=== PATIENT | male | born 1990 | race Caucasian/White ===

== ENCOUNTER 2019-09-27 15:06 | Emergency (ER) | payer OTHER ==
[~2019-09-27] VITALS: Ht 175.3 cm; Wt 80.0 kg
[2019-09-27] MEDS ORDERED: PRED20TA PO (16:11)
[2019-09-27] MEDS ORDERED: IBUP-1984 PO (16:11)
[2019-09-27 16:32] VITALS: BP 101/53
== END 2019-09-27 16:34 | disposition home or self-care (01) ==
LOC: ER 15:07
DX: G56.02 Carpal tunnel syndrome, left upper limb (principal); Z79.899 Other long term (current) drug therapy
CPT/HCPCS: 29125; 73090; 99283

== ENCOUNTER 2024-03-07 10:00 | Emergency (ER) | payer OTHER ==
[~2024-03-07] VITALS: Ht 175.3 cm; Wt 82.0 kg
[2024-03-07 10:09] VITALS: TEMP 98.6
[2024-03-07 11:19] LABS: BASOPHILS # (AUTO) 0.1 X10'3 (0-0.2); BASOPHILS % (AUTO) 1.1 % (0-1); EOSINOPHILS # (AUTO) 0.3 X10'3 (0-0.9); EOSINOPHILS % (AUTO) 4.8 % (0-6); HEMATOCRIT 46.7 % (42.0-52.0); HEMOGLOBIN 15.7 g/dl (14.0-17.9); LYMPHOCYTES # (AUTO) 1.6 X10'3 (1.1-4.8); LYMPHOCYTES % (AUTO) 22.4 % (21-51); MEAN CORPUSCULAR HEMOGLOBIN 29.1 PG (27.0-31.0); MEAN CORPUSCULAR HGB CONC 33.7 g/dL (33.0-36.5); MEAN CORPUSCULAR VOLUME 86.3 FL (78-98); MEAN PLATELET VOLUME 6.7 FL (7.4-10.4); MONOCYTES # (AUTO) 0.5 X10'3 (0-0.9); MONOCYTES % (AUTO) 7.7 % (2-12); NEUTROPHILS # (AUTO) 4.5 X10'3 (1.8-7.7); PLATELET COUNT 294 X10'3 (140-440); RED BLOOD COUNT 5.41 X10'6 (4.70-6.10); RED CELL DISTRIBUTION WIDTH 14.5 % (11.5-14.5); WHITE BLOOD COUNT 7.1 X10'3 (4.5-11.0)
[2024-03-07] MEDS ORDERED: iohexol 300mg/ml 100ml inj. ONE (11:27)
[2024-03-07 11:39] LABS: APTT 27 SECONDS (22-32); PROTHROMBIN TIME 10.2 SECONDS (9.0-12.0)
[2024-03-07 11:42] LABS: ALANINE AMINOTRANSFERASE 42 U/L (12-78); ALBUMIN 4.4 G/DL (3.4-5.0); ALBUMIN/GLOBULIN RATIO 1.4 (1.1-1.5); ALKALINE PHOSPHATASE 77 IU/L (46-116); ANION GAP 6 (8-16); ASPARTATE AMINO TRANSFERASE 22 U/L (10-37); BILIRUBIN,TOTAL 0.4 MG/DL (0.1-1.0); BLOOD UREA NITROGEN 14 MG/DL (7-18); BUN/CREATININE RATIO 15.9 (10.0-20.0); CALCIUM 9.3 MG/DL (8.5-10.1); CHLORIDE 107 MMOL/L (99-107); CREATININE 0.88 MG/DL (0.60-1.10); GLUCOSE 100 MG/DL (70-104); LIPASE 138 U/L (16-77); POTASSIUM 4.3 MMOL/L (3.5-5.1); SODIUM 142 MMOL/L (135-145); TOTAL CARBON DIOXIDE 28.9 MMOL/L (24-32); TOTAL PROTEIN 7.6 G/DL (6.4-8.2); eCRCL 121 ML/MIN; eGFR > 90 ML/MIN
[2024-03-07] MEDS: acetaminophen 325mg tablet PO ONE (12:29)
[2024-03-07] MEDS: pantoprazole 40 MG vial IV ONE (12:29)
[2024-03-07] MEDS ORDERED: PANT20TA18 PO (13:19)
[2024-03-07 14:00] VITALS: BP 137/84; PULSE 68; RESP 16; O2SAT 98
== END 2024-03-07 13:58 | disposition home or self-care (01) ==
LOC: ER 10:00
DX: K92.1 Melena (principal); Z79.899 Other long term (current) drug therapy
CPT/HCPCS: 36415; 74177; 80053; 83690; 85025; 85610; 85730; 86885; 86900; 86901; 96365; 99285; J2470; Q9967

== ENCOUNTER 2024-04-25 13:07 | Emergency (ER) | payer MEDICAID ==
[~2024-04-25] VITALS: Ht 175.3 cm; Wt 77.2 kg
[~2024-04-25 13:07] MED LIST: PANT20TA18 PO
[2024-04-25 13:29] VITALS: BP 113/82; PULSE 89; RESP 18; O2SAT 96
[2024-04-25] MEDS ORDERED: ALBU8HFA INH (14:34)
[2024-04-25] MEDS ORDERED: BENZ-38 PO (14:34)
[2024-04-25] MEDS ORDERED: PRED50TA PO (14:34)
[2024-04-25 14:42] VITALS: TEMP 98.2
== END 2024-04-25 14:44 | disposition home or self-care (01) ==
LOC: ER 13:08
DX: J06.9 Acute upper respiratory infection, unspecified (principal)
CPT/HCPCS: 71045; 99283

== ENCOUNTER 2024-11-09 13:07 | Emergency (ER) | payer MEDICAID ==
[~2024-11-09] VITALS: Ht 175.3 cm; Wt 78.7 kg
[~2024-11-09 13:07] MED LIST changes: +PRED50TA PO
[2024-11-09 13:12] VITALS: BP 113/61; PULSE 73; RESP 16; O2SAT 99
[2024-11-09] MEDS ORDERED: methylPREDNISolone sod succ/PF 40mg inj. IM STA (14:11)
[2024-11-09] MEDS: LIDOcaine 1% 30ml preserv. free vial IJ STA (14:11)
--- NOTE | 2024-11-09 14:13 | Physician Documentation ---
History of Present Illness ~ Chief Complaint: Elbow pain Stated Complaint: R HAND PAIN Time Seen by MD: 13:53 Primary Medical Doctor: None HPI The patient Is seen today with complaints of pain in his right elbow of the area of the lateral epicondyle. Patient also complains of numbness and tingling of the palmar surface of his right hand. Patient states he went to grab a gal of milk out of the Fridge yesterday in his whole hand gave out and he dropped a gal of milk he is very unusual for the patient. 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 Patient has no other concern or complaint at this time. Patient denies any neck pain. Patient denies any numbness or tingling in the dorsum of his right hand. Tetanus within 5 years: No Medication Reconciliation Allergies: Coded Allergies: No Known Allergies (Unverified , 11/09/24) Scheduled Pantoprazole Sodium (Protonix), 1 TAB PO DAILY Prednisone (Prednisone), 1 TAB PO DAILY Past Medical History Past Medical History: No Pertinent History Past Surgical History: noncontributory Review of Systems Constitutional: Denies: chills, fever, weakness Eyes: Denies: pain, blurred vision ENT: Denies: ear pain, nose pain, throat pain, mouth pain Respiratory: Denies: cough, shortness of breath Cardiovascular: Denies: chest pain, palpitations Gastrointestinal: Denies: abdominal pain, nausea, vomiting Genitourinary: Denies: burning, dysuria Male Genitalia: Denies: penile discharge, testicular pain Neurological: Denies: headache, dizziness Musculoskeletal: Denies: pain, swelling Integumentary: Denies: rash, lesions Allergic/Immunologic: Denies: hives, itching Hematologic/Lymphatic: Denies: no symptoms reported Psychiatric: Denies: depression, anxiety Physical Exam Vital Signs: Temperature: 98.3, Source: Temporal, Heart Rate: 73, Respiratory Rate: 16, BP: 113/61, Pulse Oximetry: 99, Weight: 78.700 Oxygen Flow Rate: 0 Physical Exam General: Awake and Alert, no acute distress. HEENT: Conjunctiva pink, Sclera clear, Mucus Membranes moist. Neck: Supple without masses and tenderness. Resp: Unlabored. Lungs clear to auscultation bilaterally. Heart: Regular Rate and rhythm, normal S1 and S2 without murmur, rub or gallop. Musculoskeletal: Patient on exam does have significant tenderness to palpation of the lateral epicondyle of the right upper extremity. Patient has decreased light touch sensation in the median and ulnar nerve distributions of the right hand, radial nerve distribution intact. After two pollicis brevis and dorsal interosseous strength are 5/5 of the right upper extremity. Motor function is intact distally. Extremities: No cyanosis,clubbing or edema. Skin: Warm and Dry. Procedures Additional Procedures Procedure Note Procedure note: 1 cc of 1% lidocaine plain without epinephrine and 20 mg of Depo-Medrol were injected into the lateral epicondyle space of the right upper extremity after area was sterilely prepped by myself today. Patient tolerated well. Adhesive bandage placed over injection site. Progress Results/Orders Results/Orders Completed Orders - MYKEL LOBO Lidocaine 1% 30ml Vial (Xylocaine 1% Via (11/09/24 14:11) Methylprednisolone Acetate*Im* (Depo-Med (11/09/24 14:32) Vital Signs 11/09/24 13:12 Temp 98.3 Pulse 73 Resp 16 B/P (MAP) 113/61 Pulse Ox 99 O2 Flow Rate 0 Medical Decision Making Findings The patient Is seen today with complaints of pain in his right elbow of the area of the lateral epicondyle. Patient also complains of numbness and tingling of the palmar surface of his right hand. Patient states he went to grab a gal of milk out of the Fridge yesterday in his whole hand gave out and he dropped a gal of milk he is very unusual for the patient. 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 Patient has no other concern or complaint at this time. Patient denies any neck pain. Patient denies any numbness or tingling in the dorsum of his right hand. Patient was given injection of 20 mg of Depo-Medrol with 1 cc of 1% lidocaine into the lateral epicondyle for treatment of tennis elbow today in the ED. of the right upper extremity. Patient was also given wrist brace to be worn at night only for carpal tunnel syndrome. Patient will also keep right elbow straight at night with a soft splint for treatment of cubital tunnel syndrome. Patient will follow up with primary care provider for referral to Neurology for nerve conduction study and possibly referral to Dr. Singh for further eval and treatment of carpal and cubital tunnel syndromes and tennis elbow of the right upper extremity. Patient will return to ED with any worsening, concerning or changing symptoms. Departure Disposition: 01 HOME / SELF CARE / HOMELESS Impression: Primary Impression: Lateral epicondylitis (tennis elbow) Qualified Codes: M77.11 - Lateral epicondylitis, right elbow Additional Impressions: Carpal tunnel syndrome of right wrist Cubital tunnel syndrome on right Condition: Improved Discharge Instructions: Carpal Tunnel Syndrome, [id number], Cubital Tunnel Syndrome, Tennis Elbow Rehab Additional Instructions: Patient was given steroid injection into the right elbow/lateral epicondyle for treatment of tennis elbow. Patient was also given wrist brace to be worn at night only for carpal tunnel syndrome. Patient will also keep right elbow straight at night with a soft splint for treatment of cubital tunnel syndrome. Patient will follow up with primary care provider for referral to Neurology for nerve conduction study and possibly referral to Dr. Singh for further eval and treatment of carpal and cubital tunnel syndromes and tennis elbow of the right upper extremity. Patient will return to ED with any worsening, concerning or changing symptoms. Referrals: NO PRIMARY CARE PROVIDER (PCP) Signature Scribe Signature: No scribe Attestation: No scribe MYKEL LOBO Nov 09, 2024 14:12
[2024-11-09] MEDS: methylPREDNISolone acetate 80mg/ml inj**IM only IJ STA (14:32)
[2024-11-09 16:11] VITALS: TEMP 98.3
== END 2024-11-09 16:13 | disposition home or self-care (01) ==
LOC: ER 13:08
DX: M77.11 Lateral epicondylitis, right elbow (principal); G56.01 Carpal tunnel syndrome, right upper limb; G56.21 Lesion of ulnar nerve, right upper limb; Z79.899 Other long term (current) drug therapy
CPT/HCPCS: 20552; 96372; 99284

== ENCOUNTER 2025-02-27 07:24 | Emergency (ER) | payer MEDICAID ==
[~2025-02-27] VITALS: Ht 175.3 cm; Wt 85.1 kg
[2025-02-27 07:27] VITALS: BP 124/82; PULSE 76; RESP 16; TEMP 97.8; O2SAT 98
[2025-02-27] MEDS: TETRACAINE 0.5% 4 ML OPHTHALMIC DROPS LEFTEYE ONE (08:47)
[2025-02-27] MEDS: fluorescein sod 1mg ophthalmic strip RIGHTEYE ONE (09:15)
--- NOTE | 2025-02-27 09:37 | Physician Documentation ---
History of Present Illness ~ Chief Complaint: Eye Pain Stated Complaint: SWOLLEN EYE Time Seen by MD: 09:10 Primary Medical Doctor: None HPI Otherwise healthy 34-year-old male presents to the emergency department for evaluation of suspected foreign body in his right eye. Reports he was working with wood last Thursday and has been there was wearing safety goggles feels that he got debris in his eye. He was initially able to remove some debris. Has not had continue his irritation with mild tearing and periorbital warmth . Medication Reconciliation Allergies: Coded Allergies: No Known Allergies (Unverified , 02/27/25) Scheduled Pantoprazole Sodium (Protonix), 1 TAB PO DAILY Prednisone (Prednisone), 1 TAB PO DAILY Past Medical History Past Medical History: No Pertinent History Past Surgical History: noncontributory Review of Systems All Other Systems at this time: Reviewed and Negative Eyes: Reports: itching, photophobia, redness, tearing Physical Exam Vital Signs: RN Vital Signs have been reviewed: Yes, Temperature: 97.8, Source: Temporal, Heart Rate: 76, Respiratory Rate: 16, BP: 124/82, Pulse Oximetry: 98, Weight: 85.100 Oxygen Flow Rate: 0 General Appearance: alert, WD/WN, mild distress Eye Lid: normal inspection, redness, swelling, warm Conjunctiva: injection Cornea: abrasion; No: foreign body Pupils/EOM/Fundus: PERRLA Slit Lamp Exam: corneal abrasion, + flourescein stain Visual Acuity : Eye Location: Left Vision Acuity Degree: 20/25 Correction: Uncorrected Nose: normal inspection Face: normal inspection Head: normal inspection Neck: non-tender Chest: accessory muscle use Cardiovascular: no edema Gastrointestinal: non-tender Skin: normal color Progress Results/Orders Results/Orders Medications Received in ER Medications (Trade) Dose Ordered Sig/Eve Route PRN Reason Start Time Stop Time Status Last Admin Dose Admin (TETRAVISC 0.5% ophth drops 5ml) 2 drop ONCE ONCE LEFTEYE 02/27/25 08:15 02/27/25 08:16 DC 02/27/25 08:47 2 DROP Vital Signs 02/27/25 07:27 Temp 97.8 Pulse 76 Resp 16 B/P (MAP) 124/82 Pulse Ox 98 O2 Flow Rate 0 Medical Decision Making Additional information obtaine: N/A Findings Examination history consistent with right eye corneal abrasion without obvious foreign body is evident by positive fluorescein stain. We will provide Acular, ofloxacin drops and Keflex for early periorbital cellulitis without consideration of orbital cellulitis. EOMs while intact. Patient's safely discharged in the emergency department with instructions to follow up with the Ophthalmology/Optometry and/or return if worse. Ear Diff. Dx: Considerations: Include: Other Eye Diff. Dx: Considerations: Include: [place], Conjuctivits-allergic, Conjuctivitis-bacterial, Conjuctivits-chlamydial, Conjuctivitis-viral, Corneal abrasion, Corneal laceration, Corneal ulceration, Foreign body-conjuctiva, Foreign body-corneal, Foreign body-intraocular, Foreign body-lid, Glaucoma, Globe rupture, Hordeolum, Iritis, Orbital cellulitis, Periobital cellulitis, Retinal artery occulsion, Retinal vein occlusion, Rust ring, Subconjunctival hem, Ultraviolet keratitis, Uveitis, Vitreous hemorrhage, Other Nose Diff. Dx: Considerations: Include: Other Tooth Diff. Dx: Considerations: Include: Other Throat Diff Dx: Considerations: Include: Other Departure Disposition: 01 HOME / SELF CARE / HOMELESS Impression: Primary Impression: Corneal abrasion Qualified Codes: S05.01XA - Injury of conjunctiva and corneal abrasion without foreign body, right eye, initial encounter Additional Impression: Periorbital cellulitis of right eye Discharge Instructions: Corneal Abrasion Additional Instructions: Tonight in the emergency department you were noted to have a corneal abrasion. Please obtain prescriptions and begin as directed. Return to the emergency department if symptoms worsen and/or follow up with the local helix coil winder. Thank you for visiting [facility]. Referrals: NO PRIMARY CARE PROVIDER (PCP) Prescriptions Ofloxacin Opth.* (Ofloxacin Opth.*) 5 Ml Bottle 1 DROP LEFTEYE Q6H for 7 Days, #5 ML Prov: TASIA SHELL 02/27/25 Cephalexin*Monohydrate* (Keflex*) 500 Mg Capsule 1 CAP PO TID, #21 CAP Prov: TASIA SHELL 02/27/25 Ketorolac Tromethamine (Acular) 0.5 % Drops 1 DROP RIGHTEYE Q6H for itching, #5 ML 0 Refills Prov: TASIA SHELL 02/27/25 Education Educated: Patient Educated regarding: diagnosis, treatment, prognosis, need for follow up Signature Scribe Signature: . Attestation: . TASIA SHELL [facility] Feb 27, 2025 09:37
[2025-02-27] MEDS ORDERED: KETO5DRO RIGHTEYE (09:39)
[2025-02-27] MEDS ORDERED: CEPH-585 PO (09:39)
[2025-02-27] MEDS ORDERED: OFLO5DRO LEFTEYE (09:39)
== END 2025-02-27 09:49 | disposition home or self-care (01) ==
LOC: ER 07:24
DX: S05.01XA Injury of conjunctiva and corneal abrasion without foreign body, right eye, initial encounter (principal); L03.213 Periorbital cellulitis; Z79.899 Other long term (current) drug therapy; X58.XXXA Exposure to other specified factors, initial encounter; Y93.89 Activity, other specified; Y92.89 Other specified places as the place of occurrence of the external cause; Y99.8 Other external cause status
CPT/HCPCS: 99283

== ENCOUNTER 2025-02-28 18:12 | Emergency (ER) | payer MEDICAID ==
[~2025-02-28] VITALS: Ht 177.8 cm; Wt 83.1 kg
[~2025-02-28 18:12] MED LIST changes: +CEPH-585 PO; +KETO5DRO RIGHTEYE; +OFLO5DRO LEFTEYE
[2025-02-28 18:20] VITALS: BP 130/74; PULSE 100; RESP 18; TEMP 97.2; O2SAT 98
--- NOTE | 2025-02-28 19:13 | Physician Documentation ---
History of Present Illness ~ Chief Complaint: Rash Stated Complaint: ALLERGIC REACTION Primary Medical Doctor: None HPI Patient 34-year-old male that presents to the emergency department for re- evaluation of an infection to his right eye that he was treated for antibiotics with yesterday. Patient also would like to be evaluated for a rash consistent with poison oak that he has had for several days. Patient reports that he has been to the majority of his time in the [place] and is exposed to poison of regularly. Patient denies fever chills nausea vomiting diarrhea at this time patient does report that infection in his eye has improved he is able to open his eye today. No other symptoms reported at this time. Medication Reconciliation Allergies: Coded Allergies: No Known Allergies (Unverified , 02/27/25) Scheduled Cephalexin*Monohydrate* (Keflex*), 1 CAP PO TID Ketorolac Tromethamine (Acular), 1 DROP RIGHTEYE Q6H Ofloxacin Opth.* (Ofloxacin Opth.*), 1 DROP LEFTEYE Q6H Pantoprazole Sodium (Protonix), 1 TAB PO DAILY Prednisone (Prednisone), 1 TAB PO DAILY Past Medical History Past Medical History: No Pertinent History Past Surgical History: noncontributory Review of Systems ROS As stated above in the HPI, otherwise all systems are reviewed and negative. Physical Exam Vital Signs: Temperature: 97.2, Source: Temporal, Heart Rate: 100, Respiratory Rate: 18, BP: 130/74, Pulse Oximetry: 98, Weight: 83.100 Oxygen Flow Rate: 0 Physical Exam VITALS: Reviewed and as above. GENERAL: Alert, no apparent distress. HEENT: Normocephalic, atraumatic, PERRL, EOMI, dry mucosa, no erythema RESPIRATORY: Lungs clear, normal breath sounds, no respiratory distress. CHEST: No accessory muscle use, no retractions CV: Regular rate, rhythm, no edema, no murmur, No: JVD GI: Soft, non-tender, bowels sounds present, no rebound, guarding, or rigidity BACK: No CVA tenderness, or swelling MUSCULOSKELETAL No deformities, no edema SKIN: Warm and dry, rash consistent with poison oak to the bilateral forearms on the posterior sides, into the anterior thighs bilaterally noted during examinati on. NEURO: Oriented x4, No motor or sensory deficit PSYCH: Normal mood and affect, no agitation Progress Results/Orders Results/Orders Completed Orders - APOLINAR GRIFFIN TUB RIDER Triamcinolone Acet 40mg/Ml Inj (Kenalog- (02/28/25 19:00) Vital Signs 02/28/25 18:20 Temp 97.2 Pulse 100 Resp 18 B/P (MAP) 130/74 Pulse Ox 98 O2 Flow Rate 0 Medical Decision Making Additional information obtaine: other Findings 34-year-old male re-evaluated in ED for eye infection and new rash. History & Presenting Problems: Patient presented for re-evaluation of a right eye infection, started on antibiotics one day prior. Reports improvement: able to open eye, decreased erythema and swelling. Also reports pruritic rash on trunk and extremities, onset several days ago, likely secondary to poison oak exposure (frequent outdoor activity). Physical Exam: Eye: Improved appearance, reduced swelling, no discharge, able to open eye. Skin: Erythematous, papulovesicular rash consistent with Toxicodendron (poison oak) dermatitis, distributed on body. Assessment: Eye infection: Improving on current antibiotic regimen. Allergic contact dermatitis (poison oak): Classic presentation, likely due to urushiol exposure. Medical Decision-Making: Eye infection: No evidence of progression or complications. Continue current antibiotics. Poison oak dermatitis: Symptomatic management initiated with intramuscular Kenalog (systemic corticosteroid) in ED. Patient educated on avoidance of further exposure, importance of washing skin/clothing after contact, and symptomatic relief measures (cool compresses, oatmeal baths). Topical corticosteroids discussed; high-potency agents are preferred for moderate symptoms, but systemic therapy chosen due to extent. Oral antihistamines not routinely recommended for itching, but may aid sleep. No evidence of secondary infection or severe systemic involvement. Disposition & Follow-Up: Discharged in stable condition. Instructed to continue antibiotics for eye infection as prescribed. Advised to monitor rash for signs of infection or worsening; continue symptomatic care. Follow up with primary care provider for ongoing management. Return to ED for new or worsening symptoms (e.g., fever, spreading rash, vision changes, severe pain). Patient verbalized understanding of diagnosis, treatment plan, and return precautions. Time spent: Total time spent on evaluation, management, and discharge education: [document as appropriate]. Data reviewed: No new labs or imaging required at this visit. Patient education provided verbally and in writing. Differential Dx:Considerations: Include: Abscess, AIDS/HIV, Anthrax (cutaneous), Atopic dermatitis, Candidiasis, Contact dermatitis, Drug reaction, Erythema multiforme, Erysipelas, Gangrene, Herpes zoster, Herpes simplex, Hidradenitis suppurativa, Impetigo, Intertrigo, Lymes disease, Molluscum con tagiosum, Osteomyelitis, Pediculosis, Pityriasis rosea, Psoriaisis, RMSF, Rosacea, Scabies, Scarlet fever, Tinea, Urticaria, Varicella, Viral exanthema, Other Departure Disposition: 01 HOME / SELF CARE / HOMELESS Impression: Primary Impression: Urticaria Additional Impression: Poison oak Condition: Stable Discharge Instructions: Poison Moody Dermatitis, [id number] Additional Instructions: You were seen in the emergency department for re-evaluation of an eye infection and a rash likely caused by poison oak exposure. You received a Kenalog (steroid) injection for your rash and were started on antibiotics for your eye infection. Eye Infection: Continue using your prescribed antibiotic eye drops or ointment as directed. This helps clear the infection and prevent complications. Wash your hands before and after touching your eyes or applying medication to prevent spreading the infection. Do not share towels, pillows, or eye makeup with others until your infection is fully resolved. If you wear contact lenses, do not use them until your eye infection is completely gone and you have checked with your doctor. Most eye infections improve within a few days of starting antibiotics, but finish the full course even if you feel better. Return to the emergency department or contact your doctor if you have any of these symptoms: Worsening redness, pain, or swelling Changes in vision (blurry vision, loss of vision) Pus or discharge that increases Fever or feeling very unwell Poison Moody Rash: The rash is caused by contact with oils from poison oak. You received a Kenalog injection to help reduce inflammation and itching. Wash any skin, clothing, or objects that may have touched poison oak with soap and water as soon as possible. For itching, you may use cool compresses or oatmeal baths for relief. Avoid scratching the rash to prevent infection. Asbs-tcp-hwbdeto creams (such as Caladryl) may help with itching, but avoid using strong steroid creams unless prescribed. The rash usually improves over 1-3 weeks. If you notice signs of infection (increased redness, warmth, swelling, pus), or if the rash spreads to your face or genitals, contact your doctor or return to the emergency department. Avoid further exposure to poison oak by wearing protective clothing when outdoors. Follow-Up: Schedule a follow-up visit with your primary care provider to check your progress and discuss any ongoing symptoms. Return to the emergency department if you have any new or worsening symptoms, such as trouble breathing, severe swelling, or vision changes. If you have questions about your medications or symptoms, contact your doctor or pharmacist. Summary: Continue your antibiotic eye treatment and monitor your rash. Follow up as directed and seek care if symptoms worsen or new problems develop. Referrals: NO PRIMARY CARE PROVIDER (PCP) Education Educated: Patient Educated regarding: diagnosis, treatment, need for follow up Signature Scribe Signature: A Attestation: Scribed for Emergency,Department by MIGUE Mcclain . 02/28/25 19:13 APOLINAR GRIFFIN Feb 28, 2025 19:13
[2025-02-28] MEDS: triamcinolone acetonide 40mg/ml inj IM ONE (19:28)
== END 2025-02-28 19:32 | disposition home or self-care (01) ==
LOC: ER 18:13
DX: L23.7 Allergic contact dermatitis due to plants, except food (principal); Z79.899 Other long term (current) drug therapy
CPT/HCPCS: 96372; 99283; J3301